=== PATIENT | male | born 1990 | race Caucasian/White ===

== ENCOUNTER 2017-01-27 01:35 | Emergency (ER) | payer MEDICAID ==
[~2017-01-27] VITALS: Ht 180.3 cm; Wt 68.0 kg
[~2017-01-27 01:35] MED LIST: DIVA250T51 OR
[2017-01-27] MEDS ORDERED: ONDANSETRON HCL 4 MG/2 ML VIAL IV ONE (02:15)
[2017-01-27] MEDS ORDERED: SODIUM CHLORIDE 0.9% 1,000 ML IV ONE (02:15)
[2017-01-27 02:24] LABS: Basophils # (auto) 0 uL; Basophils % (auto) 0.3 % (0.0-2.0); Eosinophils # (auto) 0.1 uL; Eosinophils % (auto) 0.9 % (0.0-7.0); Hemoglobin 17.1 g/dL (13.5-17.5); Lymphocytes # (auto) 3.3 uL; Lymphocytes % (auto) 19.8 % (10.0-50.0); Mean Corpuscular Hemoglobin 27.5 pg (28.0-32.0); Mean Corpuscular Hgb Conc. 33.6 g/dL (32.0-36.0); Mean Platelet Volume 9.1 fL (6.9-10.8); Monocytes % (auto) 5.8 % (0.0-12.0); Neutrophils # (auto) 12.1 uL; Neutrophils % (auto) 73.2 % (37.0-80.0); Nucleated Red Blood Cells % 0.1 %; Platelet Count (auto) 167 10^3/uL (140-450); Red Cell Distribution Width 13.7 % (11.8-14.3); White Blood Cell 16.6 10^3/uL (4.4-10.8)
[2017-01-27] MEDS ORDERED: MVI in SODIUM CHLORIDE 0.9% 1,010 ML IV ONE (02:36)
[2017-01-27] MEDS ORDERED: THIAMINE HCL 100 MG/ML 2ML VIAL IV ONE (02:45)
[2017-01-27 02:50] LABS: Albumin 4.4 g/dL (3.4-5.0); BUN/Creatinine Ratio 16.5; Calcium 8.9 mg/dL (8.5-10.1); Potassium 3.6 mmol/L (3.5-5.1)
[2017-01-27 02:53] LABS: Bilirubin, Total 0.5 mg/dL (0.2-1.0); Total Protein 8.4 g/dL (6.4-8.2)
[2017-01-27 03:12] LABS: Magnesium 2.4 mg/dL (1.6-2.6)
[2017-01-27 05:00] VITALS: BP 120/59
== END 2017-01-27 05:15 | disposition left against medical advice (07) ==
LOC: ER 01:40 → EDUNIT# 01:40 → EDBD 01:40 → ER 05:15
DX: R11.2 Nausea with vomiting, unspecified (principal); R04.2 Hemoptysis; Z53.21 Procedure and treatment not carried out due to patient leaving prior to being seen by health care provider
CPT/HCPCS: 36415; 74176; 80053; 80320; 83690; 83735; 84484; 85025; 85379; 93005; 96361; 96374; 96375; J2405; J3411; J3475; J7030

== ENCOUNTER 2017-10-12 13:28 | Inpatient (IN) | payer MEDICAID ==
[~2017-10-12] VITALS: Ht 154.9 cm; Wt 70.3 kg
[2017-10-12] MEDS ORDERED: PANTOPRAZOLE 40 MG/10 ML VIAL IV STA (14:18)
[2017-10-12] MEDS ORDERED: SODIUM CHLORIDE 0.9% 1,000 ML IVB ONE (14:18)
[2017-10-12] MEDS ORDERED: MORPHINE SULFATE 8mg/ml INJ SDV IV ONE (14:30)
[2017-10-12] MEDS ORDERED: ONDANSETRON HCL 4 MG/2 ML VIAL IV ONE (14:30)
[2017-10-12 14:44] LABS: Basophils # (auto) 0 uL; Basophils % (auto) 0.1 % (0.0-2.0); Eosinophils # (auto) 0 uL; Hemoglobin 15.4 g/dL (13.5-17.5); Lymphocytes # (auto) 1.1 uL; Lymphocytes % (auto) 6.2 % (10.0-50.0); Mean Corpuscular Hemoglobin 27.4 pg (28.0-32.0); Mean Corpuscular Hgb Conc. 33.5 g/dL (32.0-36.0); Mean Corpuscular Volume 81.9 fL (80.0-100.0); Monocytes # (auto) 0.5 uL; Monocytes % (auto) 2.7 % (0.0-12.0); Nucleated Red Blood Cells % 0.1 %; Platelet Count (auto) 165 10^3/uL (140-450); Red Blood Cells 5.62 10^6/uL (4.5-5.90); Red Cell Distribution Width 13.2 % (11.8-14.3); White Blood Cell 17.6 10^3/uL (4.4-10.8)
[2017-10-12 15:04] LABS: Alanine Aminotransferase 23 U/L (16-61); Albumin 4.4 g/dL (3.4-5.0); Alkaline Phosphatase 80 U/L (45-117); Anion Gap 10 (5-15); Aspartate Aminotransferase 19 U/L (15-37); BUN/Creatinine Ratio 11.2; Bilirubin, Total 0.6 mg/dL (0.2-1.0); Blood Alcohol < 3.0 mg/dL (0-5); Blood Urea Nitrogen 11 mg/dL (7-18); Calcium 9.3 mg/dL (8.5-10.1); Carbon Dioxide 28 mmol/L (21-32); Chloride 105 mmol/L (98-107); GFR African American 120 mL/min; GFR Non-African American 99 mL/min; Glucose 96 mg/dL (74-106); Lipase 148 U/L (73-393); Magnesium 2.3 mg/dL (1.6-2.6); Potassium 3.8 mmol/L (3.5-5.1); Sodium 143 mmol/L (136-145); Total Protein 8.3 g/dL (6.4-8.2)
[2017-10-12] MEDS: SODIUM CHLORIDE 0.9% 1,000 ML IV SCH (15:38)
[2017-10-12] MEDS ORDERED: ACETAMINOPHEN 500 MG TAB PO PRN (15:45)
[2017-10-12] MEDS ORDERED: MORPHINE SULFATE 10 MG/ML INJ 1ML SDV IV PRN ×2 (15:45)
[2017-10-12] MEDS ORDERED: LORazepam 0.5 MG TAB PO PRN (15:45)
[2017-10-12] MEDS ORDERED: cefTRIAXone 1GM/10ml IVPUSH 10 ML IV ONE (15:45)
[2017-10-12] MEDS ORDERED: TEMAZEPAM 15 MG CAP PO PRN (15:45)
[2017-10-12] MEDS ORDERED: HYDROcodone-ACET 5/325MG TAB PO PRN (15:45)
[2017-10-12] MEDS ORDERED: PROMETHAZINE HCL 25 MG/ML 1ML IV PRN (15:45)
[2017-10-12] MEDS ORDERED: NITROGLYCERIN 0.4 MG SL TAB SL PRN (15:45)
[2017-10-12] MEDS ORDERED: IOHEXOL 300 MG/ML 100ML BOTTLE IJ ONE (15:52)
[2017-10-12] MEDS ORDERED: GASTROGRAFIN 30 ML SOL ONE (15:52)
[2017-10-12] MEDS: PANTOPRAZOLE 40 MG/10 ML VIAL IV ONE ×2 (16:00→16:03)
[2017-10-12 16:10] LABS: Urine Bacteria NONE SEEN /hpf (None Seen); Urine Blood Negative /uL (Negative); Urine Mucus FEW (None Seen); Urine Specific Gravity 1.027 (1.001-1.035); Urine WBC 1 /hpf (0 - 3)
[2017-10-12] MEDS: metroNIDAZOLE 500MG/100ML 100 ML IV SCH ×2 (16:37→22:32)
[2017-10-12 18:01] LABS: Amphetamine Screen, Urine NEGATIVE (NEGATIVE); Barbiturate Scree,Urine NEGATIVE (NEGATIVE); Benzodiazephine Screen, Urine NEGATIVE (NEGATIVE); Cannabinoid Screen, Urine POSITIVE (NEGATIVE); Cocaine Screen, Urine NEGATIVE (NEGATIVE); Opiate Scree,Urine NEGATIVE (NEGATIVE); Phencyclidine Screen, Urine NEGATIVE (NEGATIVE)
[2017-10-12] MEDS: PANTOPRAZOLE 40 MG/10 ML VIAL IV SCH (22:05)
[2017-10-13] MEDS: SODIUM CHLORIDE 0.9% 1,000 ML IV SCH ×2 (01:28→13:27)
[2017-10-13] MEDS: metroNIDAZOLE 500MG/100ML 100 ML IV SCH ×2 (04:39→09:40)
[2017-10-13 06:21] LABS: Basophils # (auto) 0 uL; Basophils % (auto) 0.3 % (0.0-2.0); Eosinophils # (auto) 0.2 uL; Eosinophils % (auto) 1.5 % (0.0-7.0); Hematocrit 42.7 % (41.0-53.0); Hemoglobin 14.3 g/dL (13.5-17.5); Lymphocytes # (auto) 3.2 uL; Mean Corpuscular Hemoglobin 27.5 pg (28.0-32.0); Mean Corpuscular Hgb Conc. 33.6 g/dL (32.0-36.0); Mean Corpuscular Volume 81.9 fL (80.0-100.0); Monocytes # (auto) 0.8 uL; Monocytes % (auto) 8.1 % (0.0-12.0); Neutrophils # (auto) 5.8 uL; Neutrophils % (auto) 58.1 % (37.0-80.0); Nucleated Red Blood Cells % 0.1 %; Platelet Count (auto) 136 10^3/uL (140-450); Red Blood Cells 5.21 10^6/uL (4.5-5.90); Red Cell Distribution Width 12.7 % (11.8-14.3)
[2017-10-13 06:50] LABS: Albumin 3.6 g/dL (3.4-5.0); BUN/Creatinine Ratio 12.8; Bilirubin, Total 0.5 mg/dL (0.2-1.0); Calcium 8.5 mg/dL (8.5-10.1); Potassium 3.6 mmol/L (3.5-5.1); Total Protein 6.8 g/dL (6.4-8.2)
[2017-10-13 06:59] LABS: Amylase 77 U/L (25-115); Cholesterol 82 mg/dL (< 200); HDL Cholesterol 33 mg/dL (40-59); LDL Cholesterol 46 mg/dL (< 100); Lipase 253 U/L (73-393); Triglycerides 88 mg/dL (< 150)
[2017-10-13] MEDS ORDERED: cefTRIAXone 1GM/10ml IVPUSH 10 ML IV SCH (09:00)
[2017-10-13] MEDS: PANTOPRAZOLE 40 MG/10 ML VIAL IV SCH (09:41)
[2017-10-13] MEDS ORDERED: PANTOPRAZOLE 40 MG/10 ML VIAL IV SCH (10:00)
[2017-10-13] MEDS ORDERED: PANT40TA2 PO (10:33)
[2017-10-13] MEDS ORDERED: LIDOCAINE VISCOUS 2% 15ML UD ONE (12:00)
[2017-10-13] MEDS ORDERED: SODIUM CHLORIDE LOCK 10 ML ONE (12:00)
[2017-10-13] MEDS ORDERED: MIDAZOLAM HCL 5 MG/ML-1ML VIAL ONE (12:00)
[2017-10-13] MEDS ORDERED: diphenhdrAMINE HCL 50 MG/1 ML VL ONE (12:00)
[2017-10-13] MEDS ORDERED: fentaNYL CITRATE 100 MCG/2 ML VL ONE (12:01)
[2017-10-13 13:12] VITALS: BP 118/53
[2017-10-13] MEDS ORDERED: PANTOPRAZOLE 40 MG TAB PO SCH (22:00)
== END 2017-10-13 14:56 | disposition home or self-care (01) | DRG 241 ==
LOC: ER 13:28 → TELE 13:29
PROVIDERS: ADMIT Internal Medicine; ATTEND Internal Medicine
PROC: 0DB68ZX Excision of Stomach, Via Natural or Artificial Opening Endoscopic, Diagnostic (ICD-10-PCS; principal; 2017-10-13 12:03)
DX: K29.81 Duodenitis with bleeding (principal); R00.1 Bradycardia, unspecified; E66.3 Overweight; F12.90 Cannabis use, unspecified, uncomplicated; F31.9 Bipolar disorder, unspecified; R19.7 Diarrhea, unspecified; F17.210 Nicotine dependence, cigarettes, uncomplicated; Z68.29 Body mass index [BMI] 29.0-29.9, adult
CPT/HCPCS: 36415; 71045; 74177; 80053; 80061; 80307; 80320; 81001; 82150; 82550; 83690; 83735; 84443; 84484; 85025; 85652; 87040; 87086; 93005; 94761; 96361; 96374; 96375; C9113; J2250; J2405; J3490